=== PATIENT | female | born 1950 | race Caucasian/White ===

== ENCOUNTER 2017-01-03 17:20 | Inpatient (IN) | payer OTHER ==
[~2017-01-03] VITALS: Ht 152.4 cm; Wt 69.5 kg
--- NOTE | ~2017-01-03 | EKG ---
[address] [place] [address] ELECTROCARDIOGRAM REPORT Name: LASHAWN WALKER Room #: 452- ADM IN M.R.#: [id number] Admission: 01/03/17 Attend Phys: Gail Sharif MD Discharge: Date of : 46 Report #: [id number] THIS REPORT FOR: //name// [facility] Test Date: 2017-01-04 Test Time: 05:39:19 Pat Name: LASHAWN WALKER Department: Room: 452 Gender: F College Sports Assistant: rebecca : 1950 Requested By: Candi Cervantes Order Number: [id number] MD: Lefty Guzman Measurements Intervals [place] Rate: 78 P: 54 TN: 130 QRS: 34 QRSD: 85 T: 203 QT: 392 QTc: 447 Interpretive Statements Sinus rhythm Abnormal R-wave progression, late transition Repol abnrm suggests ischemia, lateral leads No previous ECG available for comparison Electronically Signed On 01-04-2017 12:40:21 CDT by Lefty Guzman [email or web address] <ELECTRONICALLY SIGNED> By: Lefty Guzman MD, [facility] 01/04/17 1240 0539 0539 Lefty Guzman MD, [facility] /EPI
--- NOTE | ~2017-01-03 | H ---
[facility] [address] [place] [address] HISTORY AND PHYSICAL Name: LASHAWN WALKER Room #: 452-P ADM IN M.R.#: [id number] Admission: 01/03/17 Attend Phys: Darius Walden MD Discharge: Date of : 46 Report #: [id number] THIS REPORT FOR: //name// CC: Coby Sharif ATTENDING PHYSICIAN: Gail Sharif M.D. PRIMARY CARE PHYSICIAN: Coby Rowland M.D. CHIEF COMPLAINT: Shortness of breath. HISTORY OF PRESENT ILLNESS: The patient is a 66-year-old female who currently resides at [facility] in long-term care. She has never been a patient here at [facility]. She apparently started having some shortness of breath yesterday, has been increasing and according to the [facility] records, she had a white blood cell count of 13 and had been started on Levaquin and otherwise details are unknown. She apparently was having increasing respiratory distress throughout the day today and EMS was called. She was brought into the ER on 6 liters and her oxygen saturation was 94%. She was wheezing on arrival and she reports that she had recently been placed on oxygen. She thinks she has been wearing it around 3 liters. She is complaining of some chest pain, but she states she has this type of pain a lot. She is also complaining of some back pain, although she did not report this to the ER. She was given nitroglycerin, Solu-Medrol, Lasix and Protonix initially in the ER and she was felt to be mildly fluid overloaded on her chest x-ray was very wheezy. She does have underlying COPD, but it does not look like she is on any regular breathing treatments. She seems somewhat confused. Overall, she is a very poor historian. She states she has had at least 13 strokes and 13 MIs, but states she has never had any sort of any stents in her heart. She has been admitted previously at [facility]. She thinks she has been on the ventilator before. Again, the details of this are not completely clear. She also is complaining of the need to have a bowel movement at this time. She states her last bowel movement was 2 days ago. She does not think she has been having any fevers. She has not been coughing. 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 PAST SURGICAL HISTORY: Unknown except for bilateral iliac stents. ALLERGIES: KEFLEX, FENTANYL, ERYTHROMYCIN and TETRACYCLINE, all unknown reactions. HOME MEDICATIONS: Per [facility] records, she has been started on Levaquin [address] [facility] [address] [place] [address] HISTORY AND PHYSICAL Name: LASHAWN WALKER Room #: 452-P [facility] IN [facility].#: [id number] Admission: 01/03/17 Attend Phys: Darius Walden MD Discharge: Date of : 46 Report #: [id number] mg daily, started yesterday; Plavix 75 mg daily; amiodarone 200 mg daily; digoxin 125 mcg daily; atorvastatin 10 mg daily; clonidine 0.1 mg b.i.d.; hydralazine 100 mg t.i.d.; amlodipine 10 mg daily; lisinopril 40 mg daily; [place] 5/325 one tab q. 4 hours p.r.n. pain; Neurontin 400 mg t.i.d.; Remeron 7.5 mg at bedtime; Requip 0.25 mg at bedtime; Imodium p.r.n.; bisacodyl suppository p.r.n.; Zofran oral p.r.n.; Lantus insulin 25 units at bedtime; Humalog insulin 6 units with meals; levothyroxine 75 mcg daily; vitamin D 50,00 units weekly and Lamictal XR 50 mg daily. SOCIAL HISTORY: The patient lives at [facility] in long-term care. She denies any current tobacco use. She used to smoke, starting at the age of 13 but quit 20 years ago. She states she smokes up to 2 packs per day. At one point, she does have a history of some alcohol use but quit 37 years ago. Denies any drug use. She reports that she gets around in a wheelchair. FAMILY HISTORY: Her mother had breast cancer. Her father from alcoholism. REVIEW OF SYSTEMS: This is attempted with the patient, otherwise negative unless stated in the HPI, but again she is a very poor historian. PHYSICAL EXAMINATION: GENERAL: The patient is an alert, slightly confused female, in no acute distress. VITAL SIGNS: Temperature is 36.8, heart rate 87, respirations 16, blood pressure is 163/50 and oxygen 96% on a 50% Ventimask. HEENT: PERRLA. Sclerae are nonicteric. Oral mucosa is pink and moist. NECK: Supple. No JVD noted. CARDIAC: Normal S1 and S2. No murmurs, rubs or gallops. RESPIRATORY: Breath sounds are with expiratory wheezing bilaterally, diminished in both bases. She is using abdominal muscles and labored breathing. She does because short of breath with speech. ABDOMEN: Round and soft. She is slightly tender across the lower quadrants, but no guarding or rigidity. VASCULAR: 1-2+ bilateral lower extremity edema, mostly around her ankles and pedal. Pedal pulses are 1+ bilaterally. Her left foot is slightly cool. NEUROLOGICAL: The patient is alert. She is oriented times 3. She is able to tell the current month and year, but she is aware she is in the hospital but unable to state which one. She will follow commands and she is moving all extremities equally. No focal deficits noted. SKIN: Skin is intact. No rashes or lesions or wounds. LABORATORY DATA AND DIAGNOSTIC DATA: WBC is 15.5, hemoglobin is 12.5 and platelets 245. Sodium 136, potassium 4.5, BUN 35, creatinine 1.7 and glucose 257. Anion gap of 8. Lactate initially on her ABG was 2 and then, it was up to 5. INR 1.0. Magnesium 2.0. LFTs are within normal limits. Troponin was 0.14. Initial ABG showed a pH of 7.3, pCO2 of 51, pCO2 her, pO2 of 60.[address] [address] HISTORY AND PHYSICAL Name: LASHAWN WALKER Room #: 452- ADM IN M.R.#: [id number] Admission: 01/03/17 Attend Phys: Darius Walden MD Discharge: Date of : 46 Report #: [id number] bicarbonate of 24.5. UA is negative, leukocyte esterase 1+ glucose and trace ketones. BNP is 2408. Chest x-ray showed mild vascular congestion with lower lobe atelectasis. EKG showing sinus rhythm. CT of abdomen showed bilateral lower lobe atelectasis with moderate pleural effusion and mild vascular congestion. Also with a large amount of stool in the rectum may represent a mild impaction. There is no evidence of bowel obstruction, ileus or free air and no acute inflammatory process seen. ASSESSMENT AND PLAN: 1. Ijhpv-ub-tevwiag respiratory failure. There is a component of chronic obstructive pulmonary disease exacerbation as well as possible heart failure as well as possible pneumonia. We will continue on Ventimask and repeat a blood gas now. We will continue with IV steroids and scheduled breathing treatments, wean oxygen as able. We will also cover with antibiotics for possible pneumonia. 2. Sepsis. She does have associated lactic acidosis. We will repeat another lactate with the blood gas now. Initially, the emergency room did not give any fluids because she was felt to have a component of heart failure and was actually given Lasix but because her lactate is increasing, we will go ahead and give fluid bolus and start maintenance IV fluids. Monitor for any signs of fluid overload. Follow blood cultures and continue with antibiotics for healthcare-acquired pneumonia. 3. Possible pneumonia and continue the above antibiotics. Follow up cultures. 4. Ajcyk-mi-qqedkyx diastolic heart failure. Her BNP is elevated and she was given Lasix earlier. We will hold off on any further diuresis because of sepsis. We will try to get records from [facility] and check an echocardiogram. 5. Diabetes type 2, this is uncontrolled. Her blood sugars are now increasing after IV steroids. We will continue her home insulin regimen including Lantus and add sliding scale insulin. Check blood sugars a.c. and at bedtime. 6. Algka-dc-fefvzpo kidney disease. Last known creatinine was 1.2 in June of 2016. Continue with hydration and follow labs. Hold lisinopril 7. Chest pain. She does have a mildly elevated troponin. We will trend serial troponins and continue with aspirin daily. We will also check D-dimer and is elevated. She will need a V/Q scan to rule out pulmonary embolism since her creatinine is elevated and she is unable to have a CT angio of the chest. 8. Hypertension. Blood pressure is stable. Resume home medications with the exception of lisinopril. 9. History of paroxysmal atrial fibrillation. She is currently in a sinus rhythm. Continue with amiodarone and digoxin. Her digoxin level was normal. 10. Bipolar disorder with depression and anxiety, this seems stable. Continue home medications. 11. History of peripheral vascular disease with iliac stents. These were noted on the CT. Continue with Plavix. 12. Hypothyroidism. Check a TSH level. Continue Synthroid. 13. Deep venous thrombosis prophylaxis. Place sequential compression devices. [facility] [address] [place] [address] HISTORY AND PHYSICAL Name: LASHAWN WALKER Faustino Room #: 452-P [facility] IN [facility].#: [id number] Admission: 01/03/17 Attend Phys: Darius Walden MD Discharge: Date of : 46 Report #: [id number] We will continue to follow the patient closely throughout the hospitalization and make changes based on clinical status. <ELECTRONICALLY SIGNED> By: DAVIS Vincent 01/06/17 0641 0429 0632 DAVIS Vincent /nt
--- NOTE | ~2017-01-03 | EKG ---
[address] [place] [address] ELECTROCARDIOGRAM REPORT Name: LASHAWN WALKER Room #: 452-P ADM IN M.R.#: [id number] Admission: 01/03/17 Attend Phys: Gail Sharif MD Discharge: Date of : 46 Report #: [id number] THIS REPORT FOR: //name// [facility] ED Test Date: 2017-01-03 Test Time: 17:27:48 Pat Name: LASHAWN WALKER Department: Room: [facility] Gender: F Manager Mass: [facility] : 1950 Requested By: Elbert Justice Order Number: [id number] MD: Lefty Guzman Measurements Intervals [place] Rate: 84 P: 59 IA: 131 QRS: 41 QRSD: 85 T: 257 QT: 336 QTc: 398 Interpretive Statements Sinus rhythm Nonspecific ST and T wave abnormality No previous ECG available for comparison Electronically Signed On 01-04-2017 12:34:57 CDT by Lefty Guzman [email or web address] <ELECTRONICALLY SIGNED> By: Lefty Guzman MD, [facility] 01/04/17 1234 1727 1727 Lefty Guzman MD, FACC /EPI
--- NOTE | ~2017-01-03 | 2DMMODE ---
[facility] [place] [address] 2 D/M-MODE ECHOCARDIOGRAM Name: LASHAWN WALKER Faustino Room #: 452-P [facility] IN .R.#: [id number] Admission: 01/03/17 Attend Phys: Darius Walden MD Discharge: Date of : 46 Date of Service: 01/05/17 1058 Report #: [id number] THIS REPORT FOR: //name// APPROVED REPORT EXAM: Comprehensive 2D, Doppler, and color-flow Echocardiogram Patient Location: Bedside/Room 452 Blood Pressure: 119/35 mmHg HR: 72 bpm Rhythm: NSR Other Information Study Quality: Adequate Technically limited study due to uncooperative patient. Indications Dyspnea Hx: COPD, CHF, TN, CVA, Afib, DM, HLP, HTN 2D Dimensions RVDd: 35.70 mm LVEF(%): 76.74 (>50%) IVSd: 11.03 (7-11mm) LVOT Diam: 18.51 (18-24mm) LVDd: 39.11 mm PWd: 10.52 (7-11mm) Ascending Aorta: 24.22 mm LVDs: 21.58 (25-40mm) Aortic Root: 28.00 mm Melgar's LVEF: 76.74 % Volumes Left Atrial Volume (Systole) Single Plane 4CH: 39.54 mL Single Plane 2CH: 35.43 mL LA ESV Index: 25.00 mL/m2 Aortic Valve AoV Peak Gabriel.: 1.93 m/s AO Peak Gr.: 14.89 mmHg LV Max P.09 mmHg LV Max: 1.33 m/s Mitral Valve MV PHT: 71.52 ms MV E Max Gabriel.: 1.63 m/s E/A Ratio: 1.3 [facility] [place] [place] [address] 2 D/M-MODE ECHOCARDIOGRAM Name: AARONLASHAWN Room #: 452-P [facility] IN ..#: [id number] Admission: 01/03/17 Attend Phys: Darius Walden MD Discharge: Date of : 46 Date of Service: 01/05/17 1058 Report #: [id number] MV A Gabriel.: 1.29 m/s MV Decel. Time: 246.61 ms Pulmonary Valve PV Peak Gabriel.: 1.26 m/s PV Peak Gr.: 6.35 mmHg Tricuspid Valve TR Peak Gabriel.: 4.09 m/s RAP Estimate: 10.00 mmHg TR Peak Gr.: 66.81 mmHg RVSP: 77.00 mmHg Left Ventricle The left ventricle is normal size. There is normal LV segmental wall motion. Borderline concentric left ventricular hypertrophy. Left ventricular systolic function is hyperdynamic. LVEF is 65-70%. Grade II - pseudonormal filling dynamics. Right Ventricle The right ventricle is normal size. The right ventricular systolic function is normal. Atria The left atrium size is normal. The right atrium size is mildly dilated. Aortic Valve The aortic valve is not well visualized but appears grossly normal. No aortic regurgitation is present. There is no aortic valvular stenosis. Mitral Valve Mild mitral annular calcification. Mild mitral regurgitation. Tricuspid Valve The tricuspid valve is normal in structure. There is mild tricuspid regurgitation. The right atrial pressure is estimated at 10 mmHg. Right ventricular systolic pressure is estimated at 77 mmHg. There is severe pulmonary hypertension. Pulmonic Valve Pulmonic valve is not well visualized. Trace pulmonic regurgitation. Great Vessels The aortic root is normal in size. IVC is normal in size and collapses <50% with inspiration. [facility] [address] [place] [address] 2 D/M-MODE ECHOCARDIOGRAM Name: CLOVER WALKERMARIANNA Harmon Room #: 452-P [facility] IN ..#: [id number] Admission: 01/03/17 Attend Phys: Darius Walden MD Discharge: Date of : 46 Date of Service: 01/05/17 1058 Report #: [id number] Pericardium There is no pericardial effusion. A left and right pleural effusion was noted. <Conclusion> Left ventricular systolic function is hyperdynamic. LVEF 65-70%. Grade II - pseudonormal filling dynamics. The right atrium size is mildly dilated. The aortic valve is not well visualized but appears grossly normal. No aortic regurgitation or stenosis. Mild mitral annular calcification. Mild mitral regurgitation. There is mild tricuspid regurgitation. The right atrial pressure is estimated at 10 mmHg. Right ventricular systolic pressure is estimated at 75 mmHg. There is no pericardial effusion. <ELECTRONICALLY SIGNED> By: Lefty Guzman MD, [facility] 01/05/17 1058 1058 1058 Lefty Guzman MD, FAC /INF
[~2017-01-03 17:20] MED LIST: ASTELIN NASAL; CHOLESTYRAMINE R5 GM MC; DIGOXIN125 MCG PO; HYDROCODONE-AP1 EAC6 PO; KLOR-CON 1010 MEQ PO; LAMICTAL100 MG PO; LASIX 40 MG TAB40 M2 PO; LEVEMIR SUBQ; LIPITOR10 MG PO; LISINOPRIL10 MG PO; LOPERAMIDE 2 MG2 M1 PO; MAGOX 400400 MG PO; MUCINEX TA600 MG/TA2 PO; NEURONTIN600 MG PO; NOVOLOG100 UNIT/1 SUBQ; ONDANSETRON HCL4 M2 PO; PACERONE 200 M200 M1 PO; REQUIP 0.25 M0.25 MG PO; TOPROL XL25 MG PO; VITAMIN D 5050000 I1 PO; ZYRTEC10 M5 PO
[2017-01-03 17:47] LABS: ABG SAMPLE TYPE ARTERIAL; BE(vivo) -2.4 mmol/L (-2 to +3); HCO3 24.5 mmol/L (22.0-26.0); LACTATE 2.02 mmol/L (0.5-2.0); O2(CT) 17.2 mL/dL (15.0-23.0); O2Hb 89.5 % (92.0-98.0); PO2 60.7 mmHg (80.0-100.0); sO2 88.5 % (92.0-98.0); tCO2 26.1 mmol/L (24.0-30.0)
[2017-01-03 17:48] LABS: STICK SITE R.RADIAL
[2017-01-03 18:08] LABS: BASOPHILS 0.8 % (0.0-2.0); EOSINOPHILS 0.7 % (0.0-3.0); HEMATOCRIT 37.8 % (37.0-47.0); HEMOGLOBIN 12.5 gm/dL (12.0-15.0); MCH 28.7 pg (26.0-34.0); MCHC 33.2 g/dL (28.0-37.0); MCV 86.4 fL (80.0-100.0); MONOCYTES 10.2 % (1.0-8.0); PLATELET COUNT 245 thou/uL (150-400); POLYS 77.3 % (36.0-66.0); RBC 4.37 mil/uL (4.20-5.00); RDW 16.7 % (10.5-14.5); WBC 15.5 thou/uL (4.0-11.0)
[2017-01-03 18:09] LABS: MANUAL DIFF NO
[2017-01-03 19:21] LABS: URINE BILIRUBIN NEGATIVE (Negative); URINE BLOOD NEGATIVE (Negative); URINE COLOR YELLOW; URINE GLUCOSE-RANDOM* 1+ (Negative); URINE KETONES TRACE (Negative); URINE LEUKOCYTES-REFLEX NEGATIVE (Negative); URINE PROTEIN (DIPSTICK) TRACE (Negative); URINE SPECIFIC GRAVITY 1.025 (1.003-1.035); URINE UROBILINOGEN 0.2 E.U./dl (0.2-1.0)
[2017-01-03 19:35] LABS: APTT 24.6 Seconds (24.5-32.8); PROTIME 10.3 Seconds (9.3-11.4)
[2017-01-03 19:36] LABS: ALBUMIN 3.6 g/dL (3.4-5.0); CALCIUM 9.1 mg/dL (8.5-10.1); CREATININE 1.7 mg/dL (0.6-1.3); POTASSIUM 4.5 mmol/L (3.5-5.1); TOTAL BILIRUBIN 0.6 mg/dL (<0.1-1.0); TOTAL PROTEIN 7.5 g/dL (6.4-8.2); TROPONIN-I 0.14 ng/mL (<0.04-0.07)
[2017-01-03 19:45] LABS: CK-MB MASS 1.9 ng/mL (<0.5-3.6); DIGOXIN 1.8 ng/mL (0.9-2.0)
[2017-01-03] MEDS ORDERED: PLAVIX 75 MG TA75 M1 PO (20:03)
[2017-01-03] MEDS ORDERED: BISACODYL10 MG (20:03)
[2017-01-03] MEDS ORDERED: LANTUS (20:04)
[2017-01-03] MEDS ORDERED: HUMALOG100 UNIT/1 (20:04)
[2017-01-03] MEDS ORDERED: REQUIP 0.25 M0.25 M1 (20:05)
[2017-01-03] MEDS ORDERED: REMERON15 MG (20:06)
[2017-01-03] MEDS ORDERED: LEVOTHYROXIN0.075 MG PO (20:07)
[2017-01-03] MEDS ORDERED: HYDROCODONE-AP1 EAC6 PO (20:07)
[2017-01-03] MEDS ORDERED: LISINOPRIL20 MG (20:08)
[2017-01-03] MEDS ORDERED: AMLODIPINE BESY10 MG PO (20:08)
[2017-01-03] MEDS ORDERED: DIGOXIN125 MCG PO (20:10)
[2017-01-03] MEDS ORDERED: ZOFRAN ODT4 MG (20:10)
[2017-01-03] MEDS ORDERED: CLONIDINE0.1 PO (20:11)
[2017-01-03] MEDS ORDERED: IMODIUM A-D2 M1 (20:11)
[2017-01-03] MEDS ORDERED: LEVAQUIN 500 M500 M2 PO (20:11)
[2017-01-03] MEDS ORDERED: BIOFREEZE118 ML TOP (20:11)
[2017-01-03] MEDS ORDERED: PACERONE 200 M200 M1 PO (20:12)
[2017-01-03] MEDS ORDERED: HYDRALAZINE 2525 MG (20:14)
[2017-01-03] MEDS ORDERED: [UNRECOGNIZED DRUG - OTHER] (20:15)
[2017-01-04 00:22] LABS: ABG SAMPLE TYPE ARTERIAL; BE(vivo) -10.3 mmol/L (-2 to +3); HCO3 17.5 mmol/L (22.0-26.0); O2(CT) 17.3 mL/dL (15.0-23.0); O2Hb 91.6 % (92.0-98.0); PCO2 45.6 mmHg (35.0-45.0); PO2 71.5 mmHg (80.0-100.0); sO2 90.7 % (92.0-98.0); tCO2 18.9 mmol/L (24.0-30.0)
[2017-01-04 00:23] LABS: LACTATE 6.87 mmol/L (0.5-2.0); STICK SITE R.BRACHIAL; pH 7.201 (7.360-7.450)
[2017-01-04 01:54] LABS: HEMOGLOBIN 11.7 gm/dL (12.0-15.0); MCHC 31.7 g/dL (28.0-37.0)
[2017-01-04 03:00] LABS: HEMATOCRIT 36.9 % (37.0-47.0); MCH 28.3 pg (26.0-34.0); RBC 4.15 mil/uL (4.20-5.00); WBC 11.1 thou/uL (4.0-11.0)
[2017-01-04 03:22] LABS: ALBUMIN 3.3 g/dL (3.4-5.0); CALCIUM 8.5 mg/dL (8.5-10.1); CREATININE 1.9 mg/dL (0.6-1.3); TOTAL BILIRUBIN 0.8 mg/dL (<0.1-1.0); TOTAL PROTEIN 7.2 g/dL (6.4-8.2); TROPONIN-I 0.09 ng/mL (<0.04-0.07)
[2017-01-04 03:30] LABS: POTASSIUM 6.4 mmol/L (3.5-5.1)
[2017-01-04 05:33] LABS: ABG SAMPLE TYPE ARTERIAL; HCO3 19.8 mmol/L (22.0-26.0); O2(CT) 14.7 mL/dL (15.0-23.0); O2Hb 93.9 % (92.0-98.0); PCO2 39.9 mmHg (35.0-45.0); PO2 75.9 mmHg (80.0-100.0); STICK SITE R.RADIAL; pH 7.313 (7.360-7.450); sO2 94.1 % (92.0-98.0)
[2017-01-04 11:16] LABS: CALCIUM 8.5 mg/dL (8.5-10.1); CREATININE 1.5 mg/dL (0.6-1.3)
[2017-01-04 11:18] LABS: POTASSIUM 4.3 mmol/L (3.5-5.1)
[2017-01-04 11:23] LABS: ALBUMIN 3.2 g/dL (3.4-5.0); TOTAL BILIRUBIN 0.6 mg/dL (<0.1-1.0); TROPONIN-I 0.34 ng/mL (<0.04-0.07)
[2017-01-05 05:52] LABS: HEMATOCRIT 33.3 % (37.0-47.0); HEMOGLOBIN 10.9 gm/dL (12.0-15.0); MCH 28.6 pg (26.0-34.0); MCHC 32.8 g/dL (28.0-37.0); MCV 86.9 fL (80.0-100.0); RBC 3.83 mil/uL (4.20-5.00); RDW 16.4 % (10.5-14.5); WBC 11.8 thou/uL (4.0-11.0)
[2017-01-05 06:15] LABS: CALCIUM 8.1 mg/dL (8.5-10.1); CREATININE 1.2 mg/dL (0.6-1.3); POTASSIUM 3.6 mmol/L (3.5-5.1); TOTAL BILIRUBIN 0.5 mg/dL (<0.1-1.0); TOTAL PROTEIN 6.6 g/dL (6.4-8.2)
[2017-01-05 12:38] LABS: ABG SAMPLE TYPE ARTERIAL; HCO3 28.4 mmol/L (22.0-26.0); LACTATE 1.61 mmol/L (0.5-2.0); O2(CT) 16.4 mL/dL (15.0-23.0); O2Hb 94.7 % (92.0-98.0); PCO2 41.8 mmHg (35.0-45.0); PO2 75.1 mmHg (80.0-100.0); sO2 95.6 % (92.0-98.0); tCO2 29.7 mmol/L (24.0-30.0)
[2017-01-05 12:40] LABS: STICK SITE L.RADIAL
[2017-01-05 22:53] LABS: ABG SAMPLE TYPE ARTERIAL; BE(vivo) 7.5 mmol/L (-2 to +3); HCO3 32.6 mmol/L (22.0-26.0); LACTATE 1.39 mmol/L (0.5-2.0); O2(CT) 15.4 mL/dL (15.0-23.0); PCO2 47.7 mmHg (35.0-45.0); PO2 57.2 mmHg (80.0-100.0); pH 7.452 (7.360-7.450); sO2 90.7 % (92.0-98.0)
[2017-01-05 22:57] LABS: FIO2 50 %; STICK SITE R.BRACHIAL
[2017-01-05 23:11] LABS: GLYCOHEMOGLOBIN (HGB A1C) 8.3 % (4.8-5.6)
[2017-01-06 05:34] LABS: HEMATOCRIT 37.8 % (37.0-47.0); HEMOGLOBIN 12.4 gm/dL (12.0-15.0); MCH 28.5 pg (26.0-34.0); MCHC 32.7 g/dL (28.0-37.0); MCV 87.4 fL (80.0-100.0); RBC 4.33 mil/uL (4.20-5.00); RDW 16.5 % (10.5-14.5)
[2017-01-06 06:01] LABS: CALCIUM 8.5 mg/dL (8.5-10.1); CREATININE 1.3 mg/dL (0.6-1.3); POTASSIUM 3.5 mmol/L (3.5-5.1)
[2017-01-07 05:30] LABS: HEMATOCRIT 38.2 % (37.0-47.0); HEMOGLOBIN 12.5 gm/dL (12.0-15.0); MCH 28.3 pg (26.0-34.0); MCHC 32.7 g/dL (28.0-37.0); MCV 86.5 fL (80.0-100.0); RBC 4.42 mil/uL (4.20-5.00); RDW 16.1 % (10.5-14.5); WBC 9.8 thou/uL (4.0-11.0)
[2017-01-07 05:40] LABS: CREATININE 1.1 mg/dL (0.6-1.3)
[2017-01-07 05:46] LABS: POTASSIUM 2.9 mmol/L (3.5-5.1)
[2017-01-08 05:23] LABS: HEMATOCRIT 36.5 % (37.0-47.0); HEMOGLOBIN 12.2 gm/dL (12.0-15.0); MCH 28.6 pg (26.0-34.0); MCHC 33.5 g/dL (28.0-37.0); MCV 85.4 fL (80.0-100.0); RBC 4.28 mil/uL (4.20-5.00); RDW 15.7 % (10.5-14.5); WBC 9.4 thou/uL (4.0-11.0)
[2017-01-08 05:34] LABS: CALCIUM 7.4 mg/dL (8.5-10.1)
[2017-01-08 05:36] LABS: POTASSIUM 3.7 mmol/L (3.5-5.1)
[2017-01-08] MEDS ORDERED: DUONEB 2.5-0.5 M3 ML INH (15:36)
[2017-01-08] MEDS ORDERED: PREDNISONE 10 M10 MG PO (15:38)
[2017-01-08] MEDS ORDERED: LASIX 40 MG TAB40 M2 PO (15:39)
[2017-01-08] MEDS ORDERED: AUGMENTIN 875875 MG PO (15:40)
[2017-01-08 22:31] LABS: INFLUENZA B Negative (Negative); METAPNEUMOVIRUS Negative (Negative)
== END 2017-01-08 18:38 | DRG 871 ==
LOC: ER 17:20 → EROBS 20:09 → 4W 20:09
PROVIDERS: Emergency Medicine; Family Medicine; Hospitalist; Nurse Practitioner Acute Care
DX: A41.9 Sepsis, unspecified organism (principal); I50.33 Acute on chronic diastolic (congestive) heart failure; J69.0 Pneumonitis due to inhalation of food and vomit; J15.6 Pneumonia due to other Gram-negative bacteria; N17.0 Acute kidney failure with tubular necrosis; J96.21 Acute and chronic respiratory failure with hypoxia; I13.0 Hypertensive heart and chronic kidney disease with heart failure and stage 1 through stage 4 chronic kidney disease, or unspecified chronic kidney disease; E87.2 Acidosis; J44.0 Chronic obstructive pulmonary disease with (acute) lower respiratory infection; J44.1 Chronic obstructive pulmonary disease with (acute) exacerbation; E11.22 Type 2 diabetes mellitus with diabetic chronic kidney disease; E11.65 Type 2 diabetes mellitus with hyperglycemia; K21.9 Gastro-esophageal reflux disease without esophagitis; E78.5 Hyperlipidemia, unspecified; G25.81 Restless legs syndrome; E03.9 Hypothyroidism, unspecified; E11.51 Type 2 diabetes mellitus with diabetic peripheral angiopathy without gangrene; F41.9 Anxiety disorder, unspecified; F31.9 Bipolar disorder, unspecified; N18.3 Chronic kidney disease, stage 3 (moderate); I48.0 Paroxysmal atrial fibrillation; E87.5 Hyperkalemia; I25.10 Atherosclerotic heart disease of native coronary artery without angina pectoris; I25.2 Old myocardial infarction; Z86.73 Personal history of transient ischemic attack (TIA), and cerebral infarction without residual deficits; Z88.1 Allergy status to other antibiotic agents; Z88.8 Allergy status to other drugs, medicaments and biological substances; Z91.030 Bee allergy status; Z81.1 Family history of alcohol abuse and dependence; Z80.3 Family history of malignant neoplasm of breast; Z91.048 Other nonmedicinal substance allergy status
CPT/HCPCS: 10045